=== PATIENT | male | born 1965 | race Caucasian/White ===

== ENCOUNTER 2021-04-02 14:55 | Inpatient (IN) | payer SELFPAY ==
[~2021-04-02] VITALS: Ht 182.9 cm; Wt 100.0 kg
[2021-04-02] MEDS ORDERED: PHENYLEPHRINE 50 MG in IV NS 0.9% 245 ML IV PRN (15:00)
[2021-04-02] MEDS ORDERED: PHENYLEPHRINE HCL IN 0.9% NACL 250 ML IV ONE (15:01)
[2021-04-02 15:13] VITALS: BP 70/30
== END 2021-04-02 15:26 | disposition still patient (30) | DRG 951 ==
LOC: ICU 14:55
PROVIDERS: ADMIT Internal Medicine; ATTEND Internal Medicine
DX: Z00.00 Encounter for general adult medical examination without abnormal findings (principal)
CPT/HCPCS: G0378